=== PATIENT | female | born 1985 | race Caucasian/White ===

== ENCOUNTER 2017-07-17 22:24 | Emergency (ER) | payer BC ==
--- NOTE | 2017-07-17 22:41 | Emergency Department Record ---
History of Present Illness - General Chief complaint: Abscess Stated complaint: CYST Time Seen by Provider: 07/17/17 22:28 Source: Patient Mode of Arrival: Ambulatory Limitations: No limitations - History of Present Illness Initial comments: The patient is here due to having a pilonidal abscess to the superior buttock area for about a month. It did drain a month ago but then stopped. Now about 3 days ago it became much more painful and tender. Now she has a low grade fever also and thinks it will need to be drained. The patient has had it drained once in the past. MD complaint: Abscess/boil Onset/Timin -: Month(s) Location: Buttocks Severity scale (1-10): 4 Quality: Dull Improves with: Rest Worsens with: Palpation, Movement Associated symptoms: Chills Treatments Prior to Arrival: Prescription analgesic - Related Data Home Medications Medication Instructions Recorded Confirmed Last Taken Hydrocodone/Acetaminophen 1 tab PO Q6H PRN 07/17/17 07/17/17 07/17/17 [Hydrocodone/Acetaminophen 5mg/325mg] Allergies Allergy/AdvReac Type Severity Reaction Status Date / Time codeine AdvReac VOMITING Verified 07/17/17 22:30 guaifenesin [From Robitussin] AdvReac PT UNSURE Verified 07/17/17 22:30 OF REACTION Travel Screening - Travel/Exposure Within Last 30 Days Have you traveled within the last 30 days?: No - Travel Symptoms Symptom Screening: None Review of Systems Constitutional: Reports: Chills, Fever Eyes: Denies: Eye discharge ENT: Denies: Congestion Respiratory: Denies: Cough, Dyspnea Past Medical History - SOCIAL HISTORY Smoking Status: Former smoker - RESPIRATORY Hx Respiratory Disorders: Yes Hx Asthma: Yes (hx of no inhaler x's 3 years) - CARDIOVASCULAR Hx Cardio Disorders: No - NEURO Hx Neuro Disorders: Yes Hx Headaches: Yes (everyday) - GI Hx GI Disorders: Yes Hx Abdominal Pain: Yes (RUQ and back) Hx Nausea/Vomiting: Yes - Hx Genitourinary Disorders: Yes Hx Kidney Stones: Yes Comment:: tubal ligation 2 months ago - ENDOCRINE Hx Endocrine Disorders: No - MUSCULOSKELETAL Hx Musculoskeletal Disorders: No - PSYCH Hx Psych Problems: No - HEMATOLOGY/ONCOLOGY Hx Hematology/Oncology Disorders: Yes Hx Bruising: Yes Family Medical History Any Significant Family History?: Yes Hx Heart Disease: Father Physical Exam - General General Appearance: Alert, Oriented x3, Cooperative, No acute distress - Head Head exam: Atraumatic - Neck Neck exam: Normal inspection, Full ROM. negative: Tenderness - Respiratory Respiratory exam: Normal lung sounds bilaterally. negative: Respiratory distress - Cardiovascular Cardiovascular Exam: Regular rate, Normal rhythm, Normal heart sounds - GI/Abdominal GI/Abdominal exam: Soft, Normal bowel sounds. negative: Tenderness - Rectal Rectal exam: Tenderness (There is an inflamed indurated warm area to the superior buttock area in the midline. It is not fluctuant.) - Extremities Extremities exam: Normal inspection, Full ROM, Normal capillary refill. negative: Tenderness Image of Full Body: 1 - Area of erythema, edema, and induration. - Back Back exam: Reports: Normal inspection. Denies: Muscle spasm, Vertebral tenderness - Neurological Neurological exam: Alert, Normal gait. negative: Abnormal gait, Motor sensory deficit - Psychiatric Psychiatric exam: negative: Anxious, Depressed Course Vital Signs 07/17/17 22:30 Temperature 99.6 F Pulse Rate [ 109 H Pulse Ox Probe] Respiratory 20 Rate Blood Pressure 113/65 [Right Arm] Pulse Ox 97 - Reevaluation(s) Reevaluation #1: Due to the fever, amount of tenderness and induration I did discuss the case with Dr. Sheehan. He is not available to come here to [facility] tomorrow so he would like the patient to travel to the ER at [facility] for his general surgery resident to take care of. 07/17/17 22:57 Reevaluation #2: The patient now states she is unable to proceed to the ER at [facility] due to family issues. She understands the risks of waiting which include a worsening infection , sepsis and disability from the infection and she accepts the risks. The patient understands we cannot be held liable for NOT transfering her tonight due to her refusing our plan. She is to proceed to the ER at 8am for consultation with Dr. Sheehan. 07/17/17 23:30 Medical Decision Making - Lab Data Result diagrams: 07/17/17 22:50 07/17/17 22:50 Disposition Disposition: Discharge Clinical Impression: Pilonidal abscess Disposition: Home, Self-Care Condition: (1) Good Instructions: Abscess (ED) Additional Instructions: Please take your home [place] for pain. Please be NPO past midnight and proceed to the ER at [facility] in the morning when you are able to for consult with Dr. Sheehan. Forms: Patient Portal Access Time of Disposition: 23:29 Quality - Quality Measures Quality Measures: N/A - Blood Pressure Screening View Details: Yes Does Patient Have Any of the Following: No Blood Pressure Classification: Normal BP Reading Systolic Measurement: 97 Diastolic Measurement: 63 Screening for High Blood Pressure: < Normal BP, F/U Not Required > [G8783]
[2017-07-17] MEDS ORDERED: KETOROLAC 30 MG/ML VIAL IVP ONE (22:46)
[2017-07-17] MEDS ORDERED: CLINDAMYCIN 600MG/50ML PREMIX 600 MG/50 ML BAG IVPB ONE (22:46)
[2017-07-17 22:57] LABS: BASO % 0.1 % (0-6); EOS % 0.5 % (0-6); GRAN % 78.6 % (47-80); HEMATOCRIT 37.6 % (35.0-47.0); HEMOGLOBIN 12.9 gm/dl (11.6-16.0); LYMPH % 15.9 % (16-45); MEAN CORPUSCULAR HEMOGLOBIN 30.9 pg (27-33); MEAN CORPUSCULAR HGB CONC 34.3 g/dl (32-36); MONO % 4.9 % (0-9); PLATELET COUNT 200 K/uL (130-400); RED BLOOD COUNT 4.18 M/uL (3.80-5.40); RED CELL DISTRIBUTION WIDTH 12.7 % (11.5-14.5); WHITE BLOOD COUNT W/O DIFF 9.9 K/uL (4.2-12.2)
[2017-07-17 23:15] LABS: BLOOD UREA NITROGEN 11 mg/dL (6-20); C-REACTIVE PROTEIN 6.4 mg/L (<5.0); CREATININE 0.6 mg/dL (0.5-0.9); EST GLOMERULAR FILTRATION RATE > 60 mL/min; GLUCOSE,RANDOM 120 mg/dL (74-109)
[2017-07-17] MEDS ORDERED: ACETAMINOPHEN 325 MG TAB PO ONE (23:23)
== END 2017-07-17 23:45 | disposition home or self-care (01) ==
LOC: ER 22:24
DX: L05.01 Pilonidal cyst with abscess (principal); R50.81 Fever presenting with conditions classified elsewhere
CPT/HCPCS: 99284 ×2; 96374; 96375; 85025; 86140; 80048; J1885

== ENCOUNTER 2018-10-23 10:38 | Emergency (ER) | payer BC ==
[2018-10-23] MEDS ORDERED: IBUPROFEN 600 MG TABLET PO ONE (10:54)
--- NOTE | 2018-10-23 11:02 | Emergency Department Record ---
History of Present Illness - General Chief Complaint: Knee injury Stated Complaint: LEFT KNEE INJURY Time Seen by Provider: 10/23/18 10:43 Source: Patient Mode of Arrival: Ambulatory Limitations: No limitations - History of Present Illness Initial Comments: The patient is here due to L knee pain for about an hour. She was standing at [employer] and then suddenly felt her L knee buckle and twist and basically give out. She also felt a "POP" and then pain to the L knee. The patient feels that her knee cap may have dislocated for a time but then it relocated. Since she has been unable to walk on the L leg due to the pain. She denies any direct trauma or impact to the L knee. MD Complaint: Knee injury Onset/Timin -: Hour(s) Severity: Mild Severity scale (1-10): 2 Context: Fall - Related Data Previous Rx's Medication Instructions Recorded Naproxen [Naprosyn] 500 mg PO BID #14 tablet. 10/23/18 Allergies Allergy/AdvReac Type Severity Reaction Status Date / Time acetaminophen [From [place]] AdvReac FLUSHING Verified 10/23/18 10:47 codeine AdvReac VOMITING Verified 10/23/18 10:46 guaifenesin [From Robitussin] AdvReac PT UNSURE Verified 10/23/18 10:46 OF REACTION hydrocodone [From [place]] AdvReac FLUSHING Verified 10/23/18 10:47 Travel Screening - Travel/Exposure Within Last 30 Days Have you traveled within the last 30 days?: No Review of Systems Constitutional: Denies: Chills, Fever Eyes: Denies: Eye discharge ENT: Denies: Congestion Respiratory: Denies: Cough, Dyspnea Past Medical History - SOCIAL HISTORY Smoking Status: Former smoker Alcohol Use: Occasional Drug Use Detail:: Marijuana - RESPIRATORY Hx Respiratory Disorders: Yes Hx Asthma: Yes (hx of no inhaler x's 3 years) - CARDIOVASCULAR Hx Cardio Disorders: No - NEURO Hx Neuro Disorders: Yes Hx Headaches: Yes (everyday) - GI Hx GI Disorders: Yes Hx Abdominal Pain: Yes (RUQ and back) Hx Nausea/Vomiting: Yes - Hx Genitourinary Disorders: Yes Hx Kidney Stones: Yes Comment:: tubal ligation 2 months ago - ENDOCRINE Hx Endocrine Disorders: No - MUSCULOSKELETAL Hx Musculoskeletal Disorders: No - PSYCH Hx Psych Problems: No - HEMATOLOGY/ONCOLOGY Hx Hematology/Oncology Disorders: Yes Hx Bruising: Yes Family Medical History Any Significant Family History?: Yes Hx Heart Disease: Father Physical Exam - General General Appearance: Alert, Oriented x3, Cooperative, Mild distress (due to the L knee pain.) - Head Head exam: Atraumatic, Normocephalic, Normal inspection - Eye Eye exam: Normal appearance - Extremities Extremities exam: Normal inspection (There is no joint swelling or effusion.), Normal capillary refill, Tenderness (The patient exhibits diffuse anterior knee tenderness.), Other (The L leg is NVI with normal distal pulses.). negative: Full ROM (There is decreased flexion due to pain.), Joint swelling Course Vital Signs 10/23/18 10:41 Temperature 97.8 F Pulse Rate 92 H Respiratory 18 Rate Blood Pressure 121/58 Pulse Ox 98 Medical Decision Making - Data Complexity MDM Data: X-Ray Ordered and/or Reviewed - Radiology Data Radiology results: Report reviewed (L knee: suprapatellar small effusion. Tiny fx fragment visible on sunrise view only. Lateral patellar tilting. Neg for dislocation.) Disposition Disposition: Discharge Clinical Impression: Closed dislocation of left patella Qualifiers: Encounter type: initial encounter Qualified Code(s): S83.005A - Unspecified dislocation of left patella, initial encounter Disposition: Home, Self-Care Condition: (2) Stable Instructions: Swollen Knee Joint (ED) Additional Instructions: Please ice and elevate the L knee for the next 2 days and use your Immobilizer and use crutches for the next 5 days. Do not walk on the L leg. Use Naprosyn for pain and please see Dr. Mcfarlane in the [facility] next week. Prescriptions: Naproxen [Naprosyn] 500 mg PO BID #14 tablet. Referrals: [facility] [Provider Group] MOLLY MCFARLANE [DOCTOR OF OSTEOPATH] - Forms: Patient Portal Access Time of Disposition: 11:57 Quality - Quality Measures Quality Measures: N/A - Blood Pressure Screening View Details: Yes Does Patient Have Any of the Following: No Blood Pressure Classification: Pre-Hypertensive BP Reading Systolic Measurement: 121 Diastolic Measurement: 58 Screening for High Blood Pressure: < Pre-Hypertensive BP, F/U Documented > [ G8950] Pre-Hypertensive Follow-up Interventions: Referral to alternative/primary care provider.
--- NOTE | 2018-10-23 12:38 | RADIOLOGY REPORT ---
EXAM: LEFT KNEE HISTORY: SEVERE LEFT KNEE PAIN AFTER TWISTING AND FALLING. THE PAIN IS GREATEST LATERALLY. TECHNIQUE: Four views of the left knee were obtained. Comparison: None. Encounter: Initial. FINDINGS: There is lateral patellar tilting. A small ossific fragment is noted projecting along the medial aspect of the patella on the sunrise view. The appearance is suspicious for a small avulsion fracture. This may imply recent patellar dislocation. A suprapatellar joint effusion is present. The remaining osseous structures appear intact. No other fractures are identified. IMPRESSION: 1. SMALL FRACTURE FRAGMENT ALONG THE MEDIAL ASPECT OF THE PATELLA SEEN ON THE SUNRISE VIEW ONLY. THIS MAY IMPLY RECENT PATELLAR DISLOCATION. 2. SUPRAPATELLAR JOINT EFFUSION. 3. NO OTHER ACUTE OSSEOUS ABNORMALITIES ARE IDENTIFIED. JOB NUMBER: [id number] [facility]
== END 2018-10-23 12:10 | disposition home or self-care (01) ==
LOC: ER 10:38
DX: S83.005A Unspecified dislocation of left patella, initial encounter (principal); X50.1XXA Overexertion from prolonged static or awkward postures, initial encounter; Y92.512 Supermarket, store or market as the place of occurrence of the external cause; Z87.891 Personal history of nicotine dependence
CPT/HCPCS: 99283

== ENCOUNTER 2018-12-01 09:42 | Day surgery (SDC) | payer BC ==
[2018-12-01] MEDS ORDERED: SEVOFLURANE 250 ML INH ONE (09:43)
[2018-12-01] MEDS ORDERED: ROPIVACAINE HCL (NAROPIN) /PF 5MG/ML 20ML VIAL IV ONE (09:43)
[2018-12-01] MEDS ORDERED: DEXAMETHASONE 4 MG/ML 1ML VIAL IVP ONE ×2 (09:43)
[2018-12-01] MEDS ORDERED: LIDOCAINE 2% MDV (20MG/ML) 20ML VIAL IV ONE (09:43)
[2018-12-01] MEDS ORDERED: BUPIVACAINE 0.25% W/EPI MPF 30ML VIAL IVP ONE (09:43)
[2018-12-01] MEDS ORDERED: ONDANSETRON HCL IV 4 MG/2 ML VIAL IVP ONE (09:43)
[2018-12-01] MEDS ORDERED: MIDAZOLAM HCL 2MG/2ML VIAL IV ONE (09:43)
[2018-12-01] MEDS ORDERED: *PACU ONLY* KETAMINE HCL 10 MG/ML (20ML) VIAL IV ONE (09:43)
[2018-12-01] MEDS ORDERED: PROPOFOL 10 MG/ML VIAL IV ONE (09:43)
[2018-12-01] MEDS ORDERED: KETOROLAC 30 MG/ML VIAL IVP ONE (09:43)
[2018-12-01] MEDS ORDERED: ACETAMINOPHEN 1000 MG/100 ML IV ONE (09:43)
[2018-12-01] MEDS ORDERED: FENTANYL PF 100MCG/2ML VIAL IV ONE (09:43)
--- NOTE | 2018-12-02 09:00 | Operative Note ---
DATE OF SURGERY: 12/01/2018 Surgeon: Rc Canchola DO PREOPERATIVE DIAGNOSES: 1. Loose joint body of left knee. 2. Patellofemoral instability of the left knee. 3. Tear of medial patellofemoral ligament, left knee. POSTOPERATIVE DIAGNOSES: 1. Loose joint body of left knee. 2. Patellofemoral instability of the left knee. 3. Tear of medial patellofemoral ligament, left knee. OPERATION: 1. Arthroscopic removal of loose joint body of left knee. 2. Arthroscopic chondroplasty of the patella of left knee. 3. Medial patellofemoral ligament reconstruction of left knee. DESCRIPTION OF PROCEDURE: This 33-year-old female was taken to the operating room and placed in the supine position on the operating room table. General anesthetic was administered. The left lower extremity was elevated and prepped with Hibiclens and draped in the usual sterile fashion. After the leg had been exsanguinated, the tourniquet inflated to 300 mmHg and the knee van applied. An inferolateral portal was established for the 4 mm arthroscope, and initial evaluation of the joint demonstrated loose joint bodies at the inferior pole of the patella. Defect at the medial side of the patella was also identified. Tearing of the joint capsule at the medial border of the patella was identified. An inferomedial portal was established and probing confirmed these findings. Fragments of articular cartilage and scar were debrided with the rotating shaver, and the defect smoothed with the rotating shaver. This defect was approximately 1 x 0.75 cm. Once this had been accomplished, the remainder of the trochlea appeared normal. The patient did demonstrate significant lateral subluxation of the patella. The medial compartment was entered and appeared to be essentially normal. The anterior cruciate ligament subsequently was identified and found to be normal. We examined the lateral compartment, and in the posterior aspect of the lateral compartment, we demonstrated another loose joint body which was grasped and evacuated from the joint. The articular cartilage of the lateral femoral condyle appeared essentially normal. Some scuffing of the articular cartilage laterally was also identified on the lateral femoral condyle. The wound was suctioned, copiously irrigated, and all areas reexamined with no additional findings being present. The joint was suctioned and the instruments were removed. The portals were sutured with 4-0 nylon suture and the portals infiltrated with 0.25% Marcaine with epinephrine. We then directed our attention to performing a medial patellofemoral ligament reconstruction. All the drapes were removed from the knee and it was re-scrubbed and prepped with Hibiclens and draped in the usual sterile fashion. A sterile bolster was placed under the left knee. The medial patellofemoral ligament was repaired. An incision was made along the medial border of the patella and an allograft was securely anchored to the patella using 4.75 SwiveLock anchors. Two were placed in the superior and middle portion of the patella. In addition to the anchor being placed, these sutures were tied to a semimembranosus graft which was about 22 cm in length. A whip stitch was placed in each end, and these sutures were placed out of the SwiveLock anchor and inserted into the patella. The loop of tissue was then placed over a moist dressing. The guide to determine the isometric point for the insertion of the medial patellofemoral ligament was used. Using the image intensifier, a perfect lateral projection was identified. Using the guide, we marked the exact spot and then the Beath needle was driven through the knee and exited the lateral side. Subsequent to this, an incision was made. The graft was then shuttled beneath the vastus medialis oblique using a passing suture, and this was drawn tight. This was then placed off to the side. We reamed over the top of the Beath needle and subsequent to this, a Nitinol wire was placed next to the Beath needle. The sutures attached to the graft were passed through the eye of the Beath needle and the Beath needle was used to draw these sutures through the hole in the femur and out the lateral side. Traction was placed on these sutures to bring the graft into the correct position. Using the Nitinol wire, we attempted to use the button to secure it in the canal; however, we were not able to do this for some reason and we elected to tie this over a button on the lateral side. Therefore, a longitudinal incision was made laterally and the sutures attached to the graft were passed through an endobutton and this was secured to the lateral cortex of the femur with the appropriate tension on the graft bringing the patella into satisfactory position. Once this had been accomplished, all wounds were copiously irrigated with lactated Ringer's solution. The sutures which were remaining attached to the anchor were used to close the capsule tissue around the patella to secure it in place. Then the sutures were cut. The remainder of the soft tissues were irrigated and subcutaneous tissue closed with 2-0 Vicryl and skin with 4-0 nylon suture. Sterile dressings were applied and an IROM brace was affixed 0-120 degrees. The patient was taken to the recovery room in satisfactory condition. GROSS PATHOLOGY: This patient demonstrated disruption of the articular cartilage of the patella from previous patellar dislocation and loose joint bodies present throughout the knee. We performed a chondroplasty of the medial oblique facet of the patella. Subsequently, reconstruction of the medial patellofemoral ligament was accomplished with a semimembranosus graft as described above. CC: RUSS Meraz
== END 2018-12-01 15:50 | disposition home or self-care (01) ==
LOC: SUR 09:42
PROVIDERS: ATTEND Orthopaedic Surgery
DX: S76.112A Strain of left quadriceps muscle, fascia and tendon, initial encounter (principal); M25.362 Other instability, left knee; M23.42 Loose body in knee, left knee; J45.909 Unspecified asthma, uncomplicated; F12.90 Cannabis use, unspecified, uncomplicated
CPT/HCPCS: 27427; 29874; 01320; 64447; 76000; A4215; J1885; J2405; J3010; J2795; 76942; C1713